=== PATIENT | female | born 1950 | race Two or more races ===

== ENCOUNTER 2018-07-14 19:56 | Emergency (ER) | payer OTHER ==
[2018-07-14] MEDS: SODIUM CHLORIDE 0.9% 1L BAG IV* (21:11)
[2018-07-14] MEDS: CEFEPIME 2GM/50 ML (PMX) 50 ML IVPB (21:12)
[2018-07-14 21:22] LABS: ADD MAN DIFF? NO
[2018-07-14 21:27] LABS: WHITE BLOOD COUNT 18.1 10^3/ul (4.8-10.8)
[2018-07-14 21:27] LABS: BASOPHILS % 0.2 % (0.0-2.0); EOSINOPHILS # 0.1 10^3/ul (0.0-0.5); EOSINOPHILS % 0.3 % (0.0-7.0); HEMATOCRIT 33.3 % (37.0-47.0); HEMOGLOBIN 11.4 g/dl (12.0-16.0); LYMPHOCYTES # 0.7 10^3/ul (0.8-2.9); MEAN CORPUSCULAR HEMOGLOBIN 29.9 pg (29.0-33.0); MEAN CORPUSCULAR HGB CONC 34.2 g/dl (32.0-37.0); MEAN CORPUSCULAR VOLUME 87.4 fl (82.0-101.0); MEAN PLATELET VOLUME 9.8 fl (7.4-10.4); MONOCYTE # 0.8 10^3/ul (0.3-0.9); MONOCYTES % 4.5 % (0.0-11.0); NEUTROPHIL # 16.3 10^3/ul (1.6-7.5); NEUTROPHILS % 90.3 % (39.0-77.0); PLATELET COUNT 220 10^3/UL (140-415); RED BLOOD COUNT 3.81 10^6/ul (4.20-5.40); RED CELL DISTRIBUTION WIDTH 12.9 % (11.5-14.5)
[2018-07-14 21:31] LABS: ADD UMIC YES; UR ASCORBIC ACID NEGATIVE (NEGATIVE); UR BACTERIA FEW /HPF (NONE SEEN); UR BILIRUBIN (Dip) NEGATIVE (NEGATIVE); UR BLOOD (Dip) 1+ mg/dL (NEGATIVE); UR CLARITY CLOUDY (CLEAR); UR COLOR YELLOW (YELLOW); UR GLUCOSE (Dip) NEGATIVE (NEGATIVE); UR KETONES (Dip) NEGATIVE (NEGATIVE); UR LEUKOCYTE ESTERASE (Dip) 3+ Leu/ul (NEGATIVE); UR NITRITE (Dip) POSITIVE (NEGATIVE); UR RBC 5 /HPF (0-5); UR SPECIFIC GRAVITY (Dip) 1.011 (1.003-1.030); UR SQUAMOUS EPITHELIAL CELL FEW /HPF (FEW); UR TOTAL PROTEIN (Dip) 1+ mg/dl (NEGATIVE); UR UROBILINOGEN (Dip) NEGATIVE (NEGATIVE); UR WBC 120 /HPF (0-5)
[2018-07-14 21:45] LABS: ANION GAP 10 (5-13); BLOOD UREA NITROGEN 17 mg/dl (7-20); CALCIUM 10.8 mg/dl (8.4-10.2); CARBON DIOXIDE 26 mmol/L (21-31); CHLORIDE 95 mmol/L (97-110); CREATININE 0.71 mg/dl (0.44-1.00); Estimated GFR > 60 mL/min (>60); GLUCOSE 109 mg/dl (70-220); INR 0.93; POTASSIUM 3.7 mmol/L (3.5-5.1); PROTIME 12.6 Sec (11.9-14.9); SODIUM 131 mmol/L (135-144)
[2018-07-14 21:46] LABS: PARTIAL THROMBOPLASTIN TIME 26.9 Sec (23.0-35.0)
[2018-07-14] MEDS: VANCOMYCIN 1 GM (PMX) 250 ML IVPB (21:48)
[2018-07-14 21:56] LABS: TROPONIN-I 0.046 ng/ml (0.000-0.120)
[2018-07-15] MEDS: IBUPROFEN 600 MG TAB PO (01:05)
[2018-07-15 02:41] LABS: LACTIC ACID 1.7 mmol/L (0.5-2.0)
== END 2018-07-15 04:39 | disposition short-term general hospital (02) ==
LOC: E/R 07-15 04:39
DX: A41.9 Sepsis, unspecified organism (principal); R65.20 Severe sepsis without septic shock; N30.00 Acute cystitis without hematuria; E11.9 Type 2 diabetes mellitus without complications; I10 Essential (primary) hypertension; Z79.84 Long term (current) use of oral hypoglycemic drugs
CPT/HCPCS: 36415; 71045; 80048; 81001; 82962; 83605; 84484; 85025; 85610; 85730; 87040; 87086; 93005; 96365; 96366; 96367; 99291-25